=== PATIENT | female | born 1995 | race Two or more races ===

== ENCOUNTER 2018-01-13 19:00 | Emergency (ER) | payer MEDICAID ==
[~2018-01-13] VITALS: Ht 162.6 cm; Wt 88.9 kg
[2018-01-13 21:29] VITALS: BP 125/81
== END 2018-01-13 22:13 | disposition home or self-care (01) ==
LOC: ER 19:00
DX: S93.402A Sprain of unspecified ligament of left ankle, initial encounter (principal); F12.10 Cannabis abuse, uncomplicated; X50.0XXA Overexertion from strenuous movement or load, initial encounter; Y93.89 Activity, other specified; Y99.8 Other external cause status; Y92.89 Other specified places as the place of occurrence of the external cause
CPT/HCPCS: 73610